=== PATIENT | female | born 1960 | race Caucasian/White ===

== ENCOUNTER 2016-08-29 05:09 | Day surgery (SDC) | payer OTHER ==
[~2016-08-29] VITALS: Ht 157.5 cm; Wt 105.2 kg
[~2016-08-29 05:09] MED LIST: DIAZEPAM5 MG PO; HYDROCHLOROTHIA25 MG PO; LEVOTHYROXINE50 MCG PO; LISINOPRIL10 MG PO; METFORMIN HCL1000 MG PO; OMEPRAZOLE40 M1 PO; VITAMIN B12 100MCG PO; ZYRTEC10 M3 PO
[2016-08-29] MEDS ORDERED: ULTRAM50 MG PO (05:49)
[2016-08-29 06:06] VITALS: BP 153/78
[2016-08-29 06:26] LABS: POINT-OF-CARE METER ID UU14174212
[2016-08-29 10:40] VITALS: BP 120/74
[2016-08-29 11:35] VITALS: BP 135/62
== END 2016-08-29 11:50 | disposition home or self-care (01) ==
LOC: SDC 05:09
PROVIDERS: Neurological Surgery
DX: M50.122 Cervical disc disorder at C5-C6 level with radiculopathy (principal); M53.2X2 Spinal instabilities, cervical region; I10 Essential (primary) hypertension; E11.42 Type 2 diabetes mellitus with diabetic polyneuropathy; E66.01 Morbid (severe) obesity due to excess calories; Z68.41 Body mass index [BMI] 40.0-44.9, adult; E07.9 Disorder of thyroid, unspecified; K21.9 Gastro-esophageal reflux disease without esophagitis; Z79.84 Long term (current) use of oral hypoglycemic drugs; Z88.5 Allergy status to narcotic agent; Z88.8 Allergy status to other drugs, medicaments and biological substances; Z82.5 Family history of asthma and other chronic lower respiratory diseases; Z80.9 Family history of malignant neoplasm, unspecified
CPT/HCPCS: 72020; 76000; 82948; C1713; J0330; J0690; J1170; J1885; J2405; J2765; J3010